=== PATIENT | male | born 1995 | race Caucasian/White ===

== ENCOUNTER 2021-01-15 22:31 | Emergency (ER) | payer MEDICAID, OTHER ==
[~2021-01-15] VITALS: Ht 162.5 cm; Wt 62.0 kg
--- NOTE | 2021-01-15 23:09 | ED Cough/URI ---
General Chief Complaint: COVID19 Suspect/Confirmed Stated Complaint: HEADACHE/FEVER/SORE THROAT/BODY ACHES Nursing Triage Note: PT AMB TO ED BY POV WITH C/O HATFIELD, BODY ACHES, WEAKNESS, COUGH, SORE THROAT BEGINING YESTERDAY. PT HAS NOT TAKEN ANY MEDS FOR SYMPTOMS. DENIES SOB. DENIES ANY SICK CONTACTS, PT NOT VACCINATED. Source: patient (LIMITED HISTORIAN) History of Present Illness Date Seen by Provider: Jan 15, 2021 Time Seen by Provider: 22:47 Initial Comments PT ARRIVES VIA POV FROM HOME PT STATES HE HAS BEEN SICK SINCE YESTERDAY C/O HEADACHE C/O BODY ACHES C/O SORE THROAT C/O SUBJECTIVE FEVER C/O COUGH AND NASAL CONGESTION C/O GENERALIZED WEAKNESS NO SHORTNESS OF BREATH NO GI SYMPTOMS NO LOSS OF TASTE OR SMELL HAS NOT TAKEN ANYTHING FOR SYMPTOMS SYMPTOMS NO DIFFERENT TONIGHT PT IS NOT COVID-19 VACCINATED PT LIVES WITH MOM AND BROTHER--HE STATES THEY ARE NOT ILL PT IS UNAWARE OF ANY SICK CONTACTS, BUT DOES NOT WEAR MASK WHEN HE IS OUTSIDE OF HOME, OR PRACTICE ANY SOCIAL DISTANCING. PCP: NONE Allergies and Home Medications Patient Home Medication List Home Medication List Reviewed: Yes Review of Systems Review of Systems Constitutional: see HPI, fever EENTM: see HPI, nose congestion, throat pain Respiratory: see HPI, cough; No short of breath Cardiovascular: no symptoms reported Gastrointestinal: no symptoms reported; No diarrhea, No nausea, No vomiting Genitourinary: no symptoms reported Musculoskeletal: see HPI (BODY ACHES) Skin: no symptoms reported; No rash Psychiatric/Neurological: See HPI, Headache Hematologic/Lymphatic: No Symptoms Reported Immunological/Allergic: no symptoms reported Past [id number]-Vedqzp-Sgefwu Hx Patient Social History Tobacco Use?: No Use of E-Cig and/or Vaping dev: No Substance use?: No Alcohol Use?: Yes Alcohol Frequency: Once in a while Pt feels they are or have been: No Immunizations Up To Date Influenza Vaccine Up-to-Date: No; Not Current First/Initial COVID19 Vaccinat: N/A Past Medical History Surgeries: No Respiratory: No Cardiac: No Neurological: Yes ("BRAIN TUMOR"--PT UNABLE TO GIVE DETAILS, DENIES ANY SURGERY FOR IT) Genitourinary: No Gastrointestinal: No Musculoskeletal: No Endocrine: No HEENT: No Cancer: No Psychosocial: No Integumentary: No Blood Disorders: No Physical Exam Vital Signs - First Documented 01/15/21 22:45 Temp 38.3 Pulse 103 Resp 16 B/P (MAP) 143/81 (101) Pulse Ox 100 O2 Delivery Room Air Capillary Refill : Less Than 3 Seconds Height: '" Weight: lbs. oz. kg; 23.00 BMI Method: General Appearance: WD/WN, no apparent distress, other (FILTHY, MALODOROUS. DOES NOT APPEAR ILL OR TO BE IN ANY DISCOMFORT OR DISTRESS. NO COUGH OR DYSPNEA NOTED. ) HEENT: PERRL/EOMI, normal ENT inspection, TMs normal, pharynx normal Neck: normal inspection Respiratory: normal breath sounds, no respiratory distress, no accessory muscle use Cardiovascular: regular rate, rhythm, no murmur Gastrointestinal: non tender, soft Extremities: normal inspection Neurologic/Psychiatric: science writer II-XII nml as tested, no motor/sensory deficits, alert, normal mood/affect, oriented x 3 Skin: normal color, warm/dry Progress/Results/Core Measures Suspected Sepsis SIRS Temperature: Pulse: 103 Respiratory Rate: 16 Blood Pressure 143 /81 Mean: 101 Results/Orders Lab Results Laboratory Tests Test 01/15/21 22:50 Range/Units Influenza Type A (RT-PCR) Not Detected Not Detecte Influenza Type B (RT-PCR) Not Detected Not Detecte SARS-CoV-2 RNA (RT-PCR) Detected H Not Detecte My Orders Orders - LANDON VANN DO Influenza A And B By Pcr (01/15/21 22:46) Covid 19 Inhouse Test (01/15/21 22:46) Vital Signs/I&O 01/15/21 22:45 Temp 38.3 Pulse 103 Resp 16 B/P (MAP) 143/81 (101) Pulse Ox 100 O2 Delivery Room Air Capillary Refill : Less Than 3 Seconds Blood Pressure Mean: 101 Progress Note : Progress Note PLACED IN ISOLATION ROOM PPE WORN AT ALL TIMES COVID-19 TESTING PERFORMED PT ADVISED OF NEED FOR QUARANTINE FOR HIMSELF AND ALL HOUSEHOLD AND CLOSE CONTACTS NO COUGH NO DYSPNEA NO HYPOXIA PT NOT A CANDIDATE FOR REGENERON, BASED ON AGE, WEIGHT, NO CHRONIC ILLNESSES, ETC. Departure Impression Primary Impression: COVID-19 virus infection Disposition: 01 HOME, SELF-CARE Condition: Stable Departure-Patient Inst. Decision time for Depature: 23:40 Referrals: NO,LOCAL PHYSICIAN (PCP/Family) Primary Care Physician Patient Instructions: COVID-19 ED, Preventing the Spread of an Infectious Disease Add. Discharge Instructions: TYLENOL 1 GRAM / MOTRIN 800 MG 4 TIMES A DAY FOR PAIN OR FEVER OVER THE COUNTER MEDICATIONS FOR COUGH AND CONGESTION LOTS OF CLEAR LIQUIDS QUARANTINE YOURSELF AND ALL HOUSEHOLD MEMBERS FOR 2 WEEKS RETURN TO ER IF YOU DEVELOP DIFFICULTY BREATHING OR WORSENING SYMPTOMS All discharge instructions reviewed with patient and/or family. Voiced understanding. LANDON VANN DO Jan 15, 2021 23:09
[2021-01-15 23:50] VITALS: BP 124/96
== END 2021-01-15 23:49 | disposition home or self-care (01) ==
LOC: ER 22:34
DX: U07.1 COVID-19 (principal)
CPT/HCPCS: 87636; 99283